=== PATIENT | male | born 1960 | race Caucasian/White ===

== ENCOUNTER → 2021-07-06 | Outpatient (REF) | payer OTHER ==
[2021-07-06 14:17] LABS: APPEARANCE, URINE CLEAR (CLEAR); BACTERIA, URINE AUTO NEGATIVE (NEGATIVE); BILIRUBIN, URINE AUTO NEGATIVE (NEGATIVE); BLOOD, URINE BLOOD NEGATIVE (NEGATIVE); COLOR, URINE YELLOW (YELLOW); GLUCOSE, URINE (UA) AUTO NEGATIVE (NEGATIVE); KETONE, URINE AUTO NEGATIVE (NEGATIVE); LEUKOCYTE ESTERASE, URINE AUTO NEGATIVE (NEGATIVE); MUCUS, URINE SMALL (NEGATIVE); NITRITE, URINE AUTO NEGATIVE (NEGATIVE); PROTEIN, URINE AUTO 1+ mg/dL (NEGATIVE); RBC, URINE AUTO 1 /HPF (0-3); SPECIFIC GRAVITY URINE AUTO 1.016 (1.002-1.035); SQUAMOUS EPITHELIAL CELL UR AU 0 /HPF (0-6); UROBILINOGEN, URINE AUTO 0.2 mg/dL (0.0-2.0); WBC, URINE AUTO 0 /HPF (0-3)
== END ==
LOC: M SMT 12:57
PROVIDERS: ATTEND Urology
DX: N40.0 Benign prostatic hyperplasia without lower urinary tract symptoms (principal)
CPT/HCPCS: 81001; G0463

== ENCOUNTER → 2023-03-22 | Outpatient (CLI) | payer OTHER | LOC: M CARPUL 11:20 | PROVIDERS: ATTEND Internal Medicine | DX: I35.0 Nonrheumatic aortic (valve) stenosis (principal); I31.39 Other pericardial effusion (noninflammatory) ==

== ENCOUNTER → 2025-04-20 | Outpatient (CLI) | payer MEDICARE, OTHER ==
[~2025-04-20] MED LIST: PROHANCE 279.3MG/ML 15ML VIAL ONE; PROHANCE 279.3MG/ML 5ML VIAL ONE
== END ==
LOC: M PLAIMG 12:39
PROVIDERS: ATTEND Urology
DX: R97.20 Elevated prostate specific antigen [PSA] (principal); N32.3 Diverticulum of bladder
CPT/HCPCS: 72197; A9576

== ENCOUNTER 2025-07-22 08:23 | Day surgery (SDC) | payer OTHER, MEDICARE ==
[~2025-07-22] VITALS: Ht 167.6 cm; Wt 100.0 kg
[~2025-07-22 08:23] MED LIST changes: +CELE1CAP4 PO; +CLAR10CA3 PO; +ECOT81TA5 PO; +FENO145T7 PO; +GABA-284 PO; +JARD1TAB3 PO; +LISI10TA22 PO; +METF-839 PO; -PROHANCE 279.3MG/ML 15ML VIAL ONE; -PROHANCE 279.3MG/ML 5ML VIAL ONE; +ROSU40TA81 PO; +SEMA2PEN SQ; +TAMS-18 PO; +VITA100093 PO
[2025-07-22] MEDS ORDERED: MIDAZOLAM INJ 2 MG/2 ML VIAL As Ordered ONE (09:29)
[2025-07-22] MEDS ORDERED: LIDOCAINE 2% 100 MG/5 ML SDV (FOR ANES.) As Ordered ONE (09:29)
[2025-07-22] MEDS: cefTRIAXone SOD 1 GM in DEXTROSE 5% (D5W) ADV/MINI-BAG 50 ML IV ONE (10:16)
[2025-07-22 11:17] VITALS: BP 118/60; TEMP 98.2; O2SAT 97
== END 2025-07-22 11:19 | disposition home or self-care (01) ==
LOC: M SDC 08:23
PROVIDERS: ATTEND Urology
DX: R97.20 Elevated prostate specific antigen [PSA] (principal); E11.22 Type 2 diabetes mellitus with diabetic chronic kidney disease; I12.9 Hypertensive chronic kidney disease with stage 1 through stage 4 chronic kidney disease, or unspecified chronic kidney disease; N18.9 Chronic kidney disease, unspecified; E78.00 Pure hypercholesterolemia, unspecified; G47.30 Sleep apnea, unspecified; Z79.899 Other long term (current) drug therapy; Z79.85 Long-term (current) use of injectable non-insulin antidiabetic drugs; Z79.84 Long term (current) use of oral hypoglycemic drugs; Z79.82 Long term (current) use of aspirin
CPT/HCPCS: 55700; G0416; J0696; J2250; J3010